=== PATIENT | female | born 1960 | race Caucasian/White ===

== ENCOUNTER → 2017-08-05 | Outpatient (CLI) | payer OTHER | END | disposition home or self-care (01) | LOC: C.LAB 10:00 | PROVIDERS: ATTEND Physician Assistant | DX: H93.12 Tinnitus, left ear (principal) ==

== ENCOUNTER → 2017-08-20 | Outpatient (CLI) | payer OTHER ==
[~2017-08-20] MED LIST: GADAVIST IV PRN
--- NOTE | 2017-08-20 09:44 | DIAGNOSTIC IMAGING REPORT ---
BRAIN COMBO FOR IAC CLINICAL HISTORY: 57 years-old Female presenting with H91.22 70 radiographic left hearing loss, tinnitus, 3 weeks duration. TECHNIQUE: Multisequence, multiplanar MR imaging of the brain was performed before and after the administration of intravenous contrast. IV contrast: 6 mL of Gadavist. COMPARISON: None. FINDINGS: Ventricles and sulci normal in size. Few scattered subcortical white matter FLAIR hyperintensities likely age-related. Brain parenchyma otherwise normal in appearance with preserved washing[place]-white differentiation. No mass effect or midline shift. No restricted diffusion to suggest acute ischemia. No hemorrhage. No extra-axial fluid collection. Dedicated imaging of the brainstem demonstrates normal cranial nerves. Specifically, the internal auditory canals are normal appearing. Normal signal intensity and appearance of the inner ears structures. T2 skull base flow voids preserved. No abnormal parenchymal enhancement. Bone marrow signal intensity within the calvarium within normal limits. IMPRESSION: 1. No acute intracranial pathology. No abnormal enhancement. Electronically signed by: Al Chen M.D. 08/20/2017 9:43 AM Dictated Date/Time: 08/20/2017 9:35 AM
== END | disposition home or self-care (01) ==
LOC: C.MRI 08:34
PROVIDERS: ATTEND Physician Assistant
DX: H91.22 Sudden idiopathic hearing loss, left ear (principal)

== ENCOUNTER → 2017-09-05 | Outpatient (CLI) | payer OTHER ==
[2017-09-05 10:11] LABS: HEMATOCRIT 43.5 % (37-47); MEAN CELL VOLUME 93.3 fL (80-100); MEAN CORPUSCULAR HEMOGLOBIN 32.2 pg (25-34); MEAN CORPUSCULAR HGB CONC 34.5 g/dl (32-36); MEAN PLATELET VOLUME 12.3 fL (7.4-10.4); PLATELET COUNT 183 K/uL (130-400); RED BLOOD COUNT 4.66 M/uL (4.2-5.4); WHITE BLOOD COUNT 4.03 K/uL (4.8-10.8)
[2017-09-05 11:13] LABS: COMPLETE YES; LYMPH ABS # 0.97 K/uL (1.2-3.4); LYMPHOCYTE % 24.1 %; NEUTROPHILS % 40.2 %; VARIANT LYM ABS # 1.33 K/uL
[2017-09-05 12:25] LABS: LYME DISEASE AB IGG NEG (NEG); LYME DISEASE AB IGM NEG (NEG)
== END | disposition home or self-care (01) ==
LOC: C.LAB 09:33
PROVIDERS: ATTEND Physician Assistant
DX: H91.22 Sudden idiopathic hearing loss, left ear (principal); H93.12 Tinnitus, left ear

== ENCOUNTER → 2017-11-05 | Outpatient (CLI) | payer OTHER ==
[~2017-11-05] MED LIST changes: -GADAVIST IV PRN; +KETO10TA PO; +MELO7.5T5 PO; +MULTTAB58 PO; +TRAM-453 PO
--- NOTE | 2017-11-05 13:11 | DIAGNOSTIC IMAGING REPORT ---
L LOWER EXT JOINT WITHOUT CLINICAL HISTORY: 57 years-old Female with LEFT KNEE PAIN. Acute left knee pain, most pronounced medially COMPARISON: Left knee radiographs 10/30/2017 TECHNIQUE: Multiplanar, multisequence MRI of the left knee was performed without intravenous contrast. FINDINGS: MENISCI: Horizontal undersurface tear of the medial meniscal body, posterior junction and posterior horn medial meniscus is nicely seen on images 2 through 6 of series 10. No definite displaced meniscal fragment or parameniscal cyst identified. The meniscus is mildly extruded into the adjacent meniscal gutter with mild adjacent edema. No definite extension of the tear into the posterior meniscal root. The lateral meniscus is sharp in contour and appears intact without tear. CRUCIATE LIGAMENTS: The anterior and posterior cruciate ligaments are normal in signal, morphology and course. COLLATERAL LIGAMENTS: The popliteus tendon, biceps femoris tendon, fibular collateral ligament and iliotibial band are intact. The superficial and deep components of the medial collateral ligament are intact. EXTENSOR MECHANISM: The quadriceps and patellar tendons are intact. The medial and lateral patellar retinacula are intact. KNEE JOINT: Trace joint effusion. Mild medial compartment joint space narrowing with low-grade chondromalacia. No significant joint space narrowing or chondral thinning of the lateral compartment. Minimal marginal spurring about the patella with intermediate grade chondral fissuring of the medial patellar facet. Low to immediate grade chondral fissuring involves the trochlear groove. No intra-articular loose body identified. BONE MARROW: The bone marrow signal is age appropriate. No fracture, marrow edema, or marrow replacing process. SOFT TISSUES: Trace Coates's cyst. Trace fluid is noted within the deep pretibial bursa. IMPRESSION: 1. Mild medial compartment and patellofemoral osteoarthritis. 2. Horizontal undersurface tear of the medial meniscal body, posterior junction and posterior horn with mild extrusion of the meniscus into the adjacent meniscal gutter. This is likely acute with associated mild parameniscal edema. No displaced fragment or parameniscal cyst. 3. Trace joint effusion. 4. No ligamentous tear or fracture identified. The above report was generated using voice recognition software. It may contain grammatical, syntax or spelling errors. Electronically signed by: Lucius Painter M.D. 11/05/2017 1:09 PM Dictated Date/Time: 11/05/2017 1:01 PM
== END | disposition home or self-care (01) ==
LOC: C.MRIBC 11:33
PROVIDERS: ATTEND Orthopaedic Surgery
DX: S83.242A Other tear of medial meniscus, current injury, left knee, initial encounter (principal); M17.12 Unilateral primary osteoarthritis, left knee; X58.XXXA Exposure to other specified factors, initial encounter

== ENCOUNTER → 2017-11-12 | Day surgery (SDC) | payer OTHER ==
[2017-11-05 15:36] LABS: BASO % 0.4 %; BASO ABS # 0.02 K/uL (0-0.2); EOS % 0.6 %; EOS ABS # 0.03 K/uL (0-0.5); HEMATOCRIT 41.7 % (37-47); HEMOGLOBIN 14.6 g/dL (12.0-16.0); IG# 0.01 K/uL (0.00-0.02); LYMPH % 31.9 %; LYMPH ABS # 1.61 K/uL (1.2-3.4); MEAN CELL VOLUME 93.5 fL (80-100); MEAN CORPUSCULAR HEMOGLOBIN 32.7 pg (25-34); MEAN PLATELET VOLUME 13.4 fL (7.4-10.4); MONO % 8.7 %; MONO ABS # 0.44 K/uL (0.11-0.59); NEUT % 58.2 %; NEUT ABS # 2.94 K/uL (1.4-6.5); PLATELET COUNT 170 K/uL (130-400); RED CELL DISTRIBUTION WIDTH CV 12.3 % (11.5-14.5); RED CELL DISTRIBUTION WIDTH SD 41.5 fL (36.4-46.3); WHITE BLOOD COUNT 5.05 K/uL (4.8-10.8)
[2017-11-05 16:01] LABS: POTASSIUM 3.8 mmol/L (3.5-5.1)
[2017-11-10 14:00] VITALS: Ht 165.1 cm; Wt 61.4 kg
[~2017-11-12] VITALS: Ht 165.1 cm; Wt 61.4 kg
[~2017-11-12] MED LIST changes: +ATROPINE SULFATE 0.1 MG/ML 5ML SYR IV PRN; +CEFAZOLIN 1000MG IV PUSH 7.5 ML IV SCH; +CEPH500C PO; +DEXAMETHASONE SOD INJ 4 MG/ML VIAL ONE; +EpHEDrine SULFATE INJ 50 MG/ML AMP IV PRN; +EpINEphrine INJ 1MG/ML AMP 1 MG/ML AMP ONE; +FENTANYL CITRATE INJ 50 MCG/1 ML 2 ML VIAL IV PRN; +FENTANYL CITRATE INJ 50 MCG/1 ML 2 ML VIAL ONE; +FLUMAZENIL 0.1 MG/1 ML 10 ML VIAL IV PRN; +HYDROmorphone INJ 2 MG/ML SYR/VIAL IV PRN; +KETOROLAC TROMETHAMINE 30 MG/ML VIAL ONE; +LABETALOL HCL IV 5 MG/ML 20ML IV PRN; +LACTATED RINGER'S 1000ML 1,000 ML IV SCH; +LIDOCAINE HCL 2% 2 ML VIAL (20MG/ML) ONE; +MEPERIDINE HCL 25 MG/ML CARP IV PRN; +MIDAZOLAM HCL 1 MG/ML 2ML VIAL ONE; +NALOXONE HCL 0.4 MG/1 ML VIAL/CARP IV PRN; +ONDANSETRON INJ 2 MG/ML 2 ML VIAL IV PRN; +ONDANSETRON INJ 2 MG/ML 2 ML VIAL ONE; +OXYC1TAB3 PO; +PATIENT'S ALLERGY INFO NEEDS ENTERED SCH; +PATIENT'S HEIGHT AND/OR WEIGHT NEEDED SCH; +PHENYLEPHRINE 100MCG/ML 5ML SYR IV PRN; +PROPOFOL IV EMULSION 10 MG/ML 20 ML VIAL IV ONE; +ROPIVACAINE 0.5% 5 MG/ML 30 ML VIAL ONE; +SODIUM CHLORIDE 0.9% 1000ML 1,000 ML IV SCH; +SULF800T23 PO; +TRAMADOL HCL 50 MG TAB PO PRN
--- NOTE | 2017-11-12 10:41 | History & Physical Bridge - SC ---
H&P Re-Evaluation Bridge Note: I have examined the patient, reviewed the History & Physical and in the interval since the performance of the History & Physical I have noted the following changes of clinical significance: No changes noted. I will be doing the surgery in Dr. Phillips's absence. Patient aware and approves. Discussed in detail. BRITT Mortensen MD
--- NOTE | 2017-11-12 11:19 | [facility] Post Operative Brief Note ---
Immediate Operative Summary Operative Date Nov 12, 2017. Pre-Operative Diagnosis Left Knee Medial Meniscus Tear + DJD Post-Operative Diagnosis Same Procedure(s) Performed Left Knee Arthroscopy, Partial Medial Meniscectomy Surgeon Dr. Mortensen Hotel Attendant Surgeon(s) Yolette Ewing PA-C Estimated Blood Loss Minimal Findings Consistent with Post-Op Diagnosis Specimens None Drains None Anesthesia Type General Complication(s) none Disposition Accompanied Pt To Recovery: no Disposition: Recovery Room / PACU
--- NOTE | 2017-11-12 11:23 | Discharge Instructions-SurgCtr ---
Discharge Instructions Date of Service Nov 12, 2017. Visit Reason for Visit: Left Knee Medial Meniscus Tear Discharge Discharge Diagnosis / Problem: left knee medial meniscus tear, djd Discharge Goals Goal(s): Decrease discomfort, Improve function, Therapeutic intervention Medications Stopped Medications Name(s): Mobic stopped 2 days ago Restart Stopped Medication(s): restart mobic when finished with toradol Activity Recommendations Activity Limitations: per Instructions/Follow-up section Weightbearing Status: Left weightbearing (as tolerated) Anesthesia . Post Anesthesia Instructions: If you have had General Anesthesia or IV Sedation: * Do not drive today. * Resume driving when surgeon permits. * Do not make important decisions or sign legal documents today. * Call surgeon for: 1. Temperature elevations greater than 101 degrees F. 2. Uncontrollable pain. 3. Excessive bleeding. 4. Persistent nausea and vomiting. 5. Medication intolerance (nausea, vomiting or rash). * For nausea and vomiting use only clear liquids such as: tea, soda, bouillon until nausea subsides, then gradually increase diet as tolerated. * If you have any concerns or questions, call your surgeon's office. If physician is unavailable and it is an emergency, call 911 or go to the nearest emergency room. . Instructions / Follow-Up Instructions / Follow-Up MEDICATIONS: * Resume previous medications unless instructed otherwise by your surgeon. * Always take pain medication on a full stomach or with food to avoid upset stomach. * Do not drink alcohol or drive while taking narcotics. * Tylenol may be taken if narcotic not needed. SPECIAL CARE INSTRUCTIONS: __ None _x_ Keep extremity elevated and iced x 48 hours; apply ice 20-30 minutes 8-10 times/day. May remove at night. __ Crutches __ May discard when able __ Brace/Post-op shoe __ 24 hrs/day __ Remove at night _x_ Dressing __ Maintain until seen in office, may shower with plastic over site _x_ Remove dressings in 24-48 hours and then may shower _x_ Cover incisions with band-aids after showering __ Do not remove steri-strips Call physician if chills or temperature rises above 102 degrees or pain unrelieved by prescribed pain medications. Office [phone] follow up in 2 weeks Diet Recommendations Home Diet: resume previous diet Procedures Procedures Performed: Left Knee Arthroscopy, Partial Medial Meniscectomy Pending Studies Studies pending at discharge: no Medical Emergencies . Who to Call and When: Medical Emergencies: If at any time you feel your situation is an emergency, please call 911 immediately. . Non-Emergent Contact Non-Emergency issues call your: Surgeon . . "Provider Documentation" section prepared by Gatito Ewing. .
[2017-11-12 12:07] VITALS: TEMP 36.6
--- NOTE | 2017-11-12 12:24 | Anesthesia Progress Nt - [facility] ---
Anesthesia Post Op Note Date & Time Nov 12, 2017 at 12:23 Vital Signs Pain Intensity: 0 Vital Signs Past 12 Hours Date Time Temp Pulse Resp B/P (MAP) Pulse Ox O2 Delivery O2 Flow Rate FiO2 11/12/17 12:07 36.6 72 16 115/72 (86) 97 Room Air 11/12/17 11:59 74 7 11/12/17 11:59 74 7 97 11/12/17 11:58 76 10 98 11/12/17 11:58 75 10 11/12/17 11:57 83 14 98 11/12/17 11:57 81 14 11/12/17 11:56 114/69 11/12/17 11:55 36.4 74 18 114/69 98 Room Air 11/12/17 11:52 76 11 11/12/17 11:52 75 11 98 11/12/17 11:51 75 5 11/12/17 11:51 75 5 114/67 98 11/12/17 11:46 79 24 100 11/12/17 11:46 82 24 11/12/17 11:45 118/67 11/12/17 11:42 84 14 11/12/17 11:42 84 14 100 11/12/17 11:41 76 10 117/69 100 11/12/17 11:41 77 10 11/12/17 11:36 76 28 123/68 100 11/12/17 11:36 76 28 11/12/17 11:35 78 27 100 11/12/17 11:35 79 27 11/12/17 11:30 78 15 122/74 100 11/12/17 11:30 78 15 11/12/17 11:26 104/61 11/12/17 11:25 64 14 100 11/12/17 11:25 64 14 11/12/17 11:21 106/60 11/12/17 11:20 36.9 62 12 106/60 98 Diffusion Mask 10 11/12/17 09:41 36.4 62 16 110/73 (85) 98 Room Air Notes Mental Status: alert / awake / arousable, participated in evaluation Pt Amnestic to Procedure: Yes Nausea / Vomiting: adequately controlled Pain: adequately controlled Airway Patency, RR, SpO2: stable & adequate BP & HR: stable & adequate Hydration State: stable & adequate Anesthetic Complications: no major complications apparent
[2017-11-12 12:29] VITALS: BP 109/67; PULSE 70; O2SAT 99
--- NOTE | 2017-11-12 21:18 | OPERATIVE REPORT ---
DATE OF OPERATION: 11/12/2017 SURGEON: Castillo Mortensen MD AGRICULTURAL EQUIPMENT TEST ENGINEER: YAJAIRA Ashraf PREOPERATIVE DIAGNOSES: 1. Left knee degenerative medial meniscus tear. 2. Left knee degenerative joint disease. POSTOPERATIVE DIAGNOSES: 1. Left knee degenerative medial meniscus tear. 2. Left knee degenerative joint disease with some grade 3 changes of medial femoral condyle and grade 2 changes of patellofemoral joint. PROCEDURE PERFORMED: 1. Left knee exam under anesthesia. 2. Left knee diagnostic arthroscopy. 3. Left knee arthroscopic partial medial meniscectomy. COMPLICATIONS: None. ESTIMATED BLOOD LOSS: Minimal. TOURNIQUET TIME: 70 minutes at 300 mmHg. ANESTHESIA: General. SPECIMENS: None. OPERATIVE INDICATIONS: The patient is a 57-year-old fairly active female who has had a several year history of on and off knee pain and discomfort. It has gotten progressively worse recently where the pain persisted, particularly in the medial side of her knee. She is having difficulty getting relief. X-rays revealed mild DJD. She does have an MRI which shows medial meniscus tear. The patient elected to proceed with operative treatment. It was felt pretty certain that she had significant chondrosis of the medial femoral condyle as well. OPERATIVE FINDINGS: Examination under anesthesia of the left knee revealed minimal knee effusion. Range of motion 0-135. She had no instability. Dylan is negative for mechanical symptoms. ARTHROSCOPIC FINDINGS: Arthroscopic findings revealed no significant effusion. She did have some grade 2 changes in the undersurface of patella. The trochlea was pretty well preserved. In the intercondylar notch, the ACL and PCL were intact. In the medial compartment, there was a very complex degenerative tear of the posterior horn of the medial meniscus. She did have some grade 2 and 3 changes of the medial femoral condyle. In the lateral compartment, there were some age-related changes to the cartilage and meniscus but no tears. OPERATIVE PROCEDURE: The patient was taken to the operating room, identified and placed on the operating table in supine position. All contact areas were appropriately padded. IV antibiotics were provided by anesthesia team. A general anesthetic was implemented. A left thigh tourniquet was then placed and left knee was then examined under anesthesia with the findings as described above. The left leg was then prepped and draped in the usual sterile fashion. The left leg was elevated and exsanguinated with Esmarch and tourniquet was placed at 300 mmHg. Routine left knee arthroscopy was then performed through typical anteromedial and anterolateral portals. Superolateral portals were established for outflow. I did remove some of the fat pad in order to adequately see him passing instruments. Attention drawn to the medial meniscus. With the use of motorized and hand controlled instruments, a partial medial meniscectomy was then performed. I resected this meniscus back to stable tissue. Once this was complete, I did lightly debride the medial femoral condyle and the patella of extraneous loose cartilage. Once this was complete, the arthroscopic instruments were then placed throughout the knee joint. All extraneous debris was removed. The arthroscopic instruments were then removed from the joint and the portals also closed with 3-0 Prolene suture in a simple fashion. The knee was injected with 30 mL of 0.5% ropivacaine with epinephrine and 30 mg of Toradol. A sterile dressing with Xeroform, 4 x 4, sterile cast padding and Chris bandage were applied. The tourniquet was then let down for a tourniquet time 17 minutes. The patient was then brought out of general anesthesia and transferred to the recovery room in stable condition. The patient tolerated the procedure without complication. All needle and sponge counts were correct at the end of the operation. I attest to the content of the Intraoperative Record and any orders documented therein. Any exception s are noted below.
== END | disposition home or self-care (01) ==
LOC: X.SURG 09:18
PROVIDERS: ATTEND Orthopaedic Surgery Sports Medicine
DX: S83.242A Other tear of medial meniscus, current injury, left knee, initial encounter (principal); X58.XXXA Exposure to other specified factors, initial encounter; M17.12 Unilateral primary osteoarthritis, left knee

== ENCOUNTER 2017-11-14 22:13 | Emergency (ER) | payer OTHER ==
[~2017-11-14] VITALS: Ht 165.1 cm; Wt 61.0 kg
[~2017-11-14 22:13] MED LIST changes: -ATROPINE SULFATE 0.1 MG/ML 5ML SYR IV PRN; -CEFAZOLIN 1000MG IV PUSH 7.5 ML IV SCH; -CEPH500C PO; -DEXAMETHASONE SOD INJ 4 MG/ML VIAL ONE; -EpHEDrine SULFATE INJ 50 MG/ML AMP IV PRN; -EpINEphrine INJ 1MG/ML AMP 1 MG/ML AMP ONE; -FENTANYL CITRATE INJ 50 MCG/1 ML 2 ML VIAL IV PRN; -FENTANYL CITRATE INJ 50 MCG/1 ML 2 ML VIAL ONE; -FLUMAZENIL 0.1 MG/1 ML 10 ML VIAL IV PRN; -HYDROmorphone INJ 2 MG/ML SYR/VIAL IV PRN; -KETOROLAC TROMETHAMINE 30 MG/ML VIAL ONE; -LABETALOL HCL IV 5 MG/ML 20ML IV PRN; -LACTATED RINGER'S 1000ML 1,000 ML IV SCH; -LIDOCAINE HCL 2% 2 ML VIAL (20MG/ML) ONE; -MEPERIDINE HCL 25 MG/ML CARP IV PRN; -MIDAZOLAM HCL 1 MG/ML 2ML VIAL ONE; -NALOXONE HCL 0.4 MG/1 ML VIAL/CARP IV PRN; -ONDANSETRON INJ 2 MG/ML 2 ML VIAL IV PRN; -ONDANSETRON INJ 2 MG/ML 2 ML VIAL ONE; -OXYC1TAB3 PO; -PATIENT'S ALLERGY INFO NEEDS ENTERED SCH; -PATIENT'S HEIGHT AND/OR WEIGHT NEEDED SCH; -PHENYLEPHRINE 100MCG/ML 5ML SYR IV PRN; -PROPOFOL IV EMULSION 10 MG/ML 20 ML VIAL IV ONE; -ROPIVACAINE 0.5% 5 MG/ML 30 ML VIAL ONE; -SODIUM CHLORIDE 0.9% 1000ML 1,000 ML IV SCH; -SULF800T23 PO; -TRAMADOL HCL 50 MG TAB PO PRN
[2017-11-14 22:29] VITALS: TEMP 36.4; Ht 165.1 cm; Wt 61.0 kg
[2017-11-14] MEDS ORDERED: SODIUM CHLORIDE 0.9% 500ML 500 ML IV STA (22:49)
[2017-11-14] MEDS ORDERED: HYDROmorphone INJ 1 MG/ML SYR IV STA (22:49)
[2017-11-14] MEDS ORDERED: ONDANSETRON INJ 2 MG/ML 2 ML VIAL IV STA (22:49)
[2017-11-14] MEDS ORDERED: CEFTRIAXONE SOD INJ 1 GM in DEXTROSE 5% ADD-VANTAGE 50ML 50 ML IV STA (23:07)
[2017-11-14] MEDS ORDERED: CEFTRIAXONE SOD INJ 1 GM ADDVIAL ONE (23:12)
[2017-11-14 23:14] LABS: BASO % 0.2 %; BASO ABS # 0.02 K/uL (0-0.2); EOS % 0.4 %; EOS ABS # 0.04 K/uL (0-0.5); HEMATOCRIT 45.3 % (37-47); HEMOGLOBIN 15.4 g/dL (12.0-16.0); IG# 0.02 K/uL (0.00-0.02); LYMPH % 25.2 %; LYMPH ABS # 2.41 K/uL (1.2-3.4); MEAN CELL VOLUME 92.4 fL (80-100); MEAN CORPUSCULAR HEMOGLOBIN 31.4 pg (25-34); MEAN PLATELET VOLUME 12.6 fL (7.4-10.4); MONO ABS # 1.15 K/uL (0.11-0.59); NEUT ABS # 5.92 K/uL (1.4-6.5); PLATELET COUNT 193 K/uL (130-400); RED CELL DISTRIBUTION WIDTH CV 12.3 % (11.5-14.5); RED CELL DISTRIBUTION WIDTH SD 41.2 fL (36.4-46.3); WHITE BLOOD COUNT 9.56 K/uL (4.8-10.8)
[2017-11-14 23:40] LABS: BLOOD UREA NITROGEN 18 mg/dl (7-18); CALCIUM 9.4 mg/dl (8.5-10.1); CARBON DIOXIDE 27 mmol/L (21-32); CREATININE 0.93 mg/dl (0.60-1.20); GLUCOSE 85 mg/dl (70-99); POTASSIUM 3.6 mmol/L (3.5-5.1); SODIUM 136 mmol/L (136-145)
[2017-11-14] MEDS ORDERED: OXYC1TAB3 PO (23:46)
[2017-11-14] MEDS ORDERED: CEPH500C PO (23:46)
[2017-11-14] MEDS ORDERED: SULF800T23 PO (23:46)
--- NOTE | 2017-11-14 23:49 | EMERGENCY ROOM VISIT NOTE ---
History First contact with patient: 22:40 Chief Complaint: KNEEPAIN Stated Complaint: PAIN/BURNING/REDNESS IN LEFT KNEE- 2 DAYS POST OP History of Present Illness The patient is a 57 year old female who presents to the Emergency Room with complaints of severe pain in her left knee that started today. The patient had a meniscus repair arthroscopically 2 days ago. She was doing fairly well yesterday. She denies any significant activity. She did elevate the leg yesterday and applied ice. She was prescribed Toradol for pain, which was working yesterday. Today, the pain became severe this afternoon. She tried Tylenol and ibuprofen with minimal relief. She also notes swelling and redness to the area. She denies any fever or chills. No chest pain or difficulty breathing. Review of Systems 10 system review performed and negative unless noted in HPI or below Past Medical/Surgical History Otherwise healthy Social History Smoking Status: Never Smoker Housing Status: lives with significant other Current/Historical Medications Scheduled Cephalexin Monohydrate (Keflex), 500 MG PO QID Ketorolac Tromethamine (Toradol), 10 MG PO Q6 Multiple Vitamin (Multivitamin), 1 TAB PO DAILY Sulfa/Trimethoprim (Bactrim Ds 800MG/160MG), 1 TAB PO BID Scheduled PRN Oxycodone Ir (Roxicodone Ir), 1-2 TAB PO Q4H PRN for Pain Tramadol Hcl (Ultram), 50-100 MG PO Q6 PRN for Pain Physical Exam Vital Signs Date Time Temp Pulse Resp B/P (MAP) Pulse Ox O2 Delivery O2 Flow Rate FiO2 11/15/17 00:39 63 16 100/60 100 Room Air 11/14/17 22:29 36.4 71 16 123/72 97 Room Air Physical Exam VITALS: Vitals are noted on the nurse's note and reviewed by myself. Vital signs stable. GENERAL: 57-year-old female, in obvious discomfort noted, HEAD: Normocephalic atraumatic. HEART: Regular rate and rhythm without murmurs gallops or rubs. LUNGS: Clear to auscultation bilaterally without wheezes, rales or rhonchi. No accessory muscle use. ABDOMEN: Positive bowel sounds x 4.Soft, nontender, without organomegaly. No guarding or rebound tenderness. MUSCULOSKELETAL: LLE: 3 small incisions noted to the left knee with sutures intact. No active drainage. There is an approximately 10 x 6 cm area of erythema and warmth diffusely over the patella. Diffuse, significant tenderness to palpation over the knee. Range of motion is severely limited secondary to pain. No erythema, swelling or tenderness over the calf. Distal pulses intact. NEURO: Patient was alert and oriented to person place and time. Normal sensation to touch. No focal neurological deficits. Medical Decision & Procedures ER Provider Diagnostic Interpretation: Ultrasound of the left lower extremity did not show any signs of a DVT X-rays were reviewed by myself and my supervising physician. No acute abnormalities were noted Laboratory Results 11/14/17 23:00 Red Blood Count 4.90, Mean Corpuscular Volume 92.4, Mean Corpuscular Hemoglobin 31.4, Mean Corpuscular Hemoglobin Concent 34.0, Mean Platelet Volume 12.6, Neutrophils (%) (Auto) 62.0, Lymphocytes (%) (Auto) 25.2, Monocytes (%) (Auto) 12.0, Eosinophils (%) (Auto) 0.4, Basophils (%) (Auto) 0.2, Neutrophils # (Auto ) 5.92, Lymphocytes # (Auto) 2.41, Monocytes # (Auto) 1.15, Eosinophils # (Auto ) 0.04, Basophils # (Auto) 0.02 11/14/17 23:00 Test 11/14/17 23:00 11/14/17 23:07 White Blood Count 9.56 K/uL (4.8-10.8) Red Blood Count 4.90 M/uL (4.2-5.4) Hemoglobin 15.4 g/dL (12.0-16.0) Hematocrit 45.3 % (37-47) Mean Corpuscular Volume 92.4 fL (80-100) Mean Corpuscular Hemoglobin 31.4 pg (25-34) Mean Corpuscular Hemoglobin Concent 34.0 g/dl (32-36) Platelet Count 193 K/uL (130-400) Mean Platelet Volume 12.6 fL (7.4-10.4) Neutrophils (%) (Auto) 62.0 % Lymphocytes (%) (Auto) 25.2 % Monocytes (%) (Auto) 12.0 % Eosinophils (%) (Auto) 0.4 % Basophils (%) (Auto) 0.2 % Neutrophils # (Auto) 5.92 K/uL (1.4-6.5) Lymphocytes # (Auto) 2.41 K/uL (1.2-3.4) Monocytes # (Auto) 1.15 K/uL (0.11-0.59) Eosinophils # (Auto) 0.04 K/uL (0-0.5) Basophils # (Auto) 0.02 K/uL (0-0.2) RDW Standard Deviation 41.2 fL (36.4-46.3) RDW Coefficient of Variation 12.3 % (11.5-14.5) Immature Granulocyte % (Auto) 0.2 % Immature Granulocyte # (Auto) 0.02 K/uL (0.00-0.02) Erythrocyte Sedimentation Rate 2 mm/hr (0-21) Anion Gap 6.0 mmol/L (3-11) Est Creatinine Clear Calc Drug Dose 60.1 ml/min Estimated GFR () 79.1 Estimated GFR (Non- 68.2 BUN/Creatinine Ratio 19.0 (10-20) Calcium Level 9.4 mg/dl (8.5-10.1) C-Reactive Protein < 0.29 mg/dl (0-0.29) Procalcitonin < 0.05 ng/ml (0-0.5) Bedside Lactic Acid Venous 0.97 mmol/L (0.90-1.70) Medications Administered Medications (Trade) Dose Ordered Sig/Panfilo Route Start Time Stop Time Status Last Admin Dose Admin Hydromorphone HCl (Dilaudid Inj) 1 mg ONE STAT IV 11/14/17 22:49 11/14/17 22:51 DC 11/14/17 23:15 1 MG Ondansetron HCl (Zofran Inj) 4 mg NOW STAT IV 11/14/17 22:49 11/14/17 22:51 DC 11/14/17 23:15 4 MG Sodium Chloride 500 ml @ 999 mls/hr Q31M STAT IV 11/14/17 22:49 11/14/17 23:19 DC 11/14/17 23:15 999 MLS/HR Ceftriaxone Sodium 1 gm/ Dextrose 50 ml @ 100 mls/hr ONE STAT IV 11/14/17 23:07 11/14/17 23:36 DC 11/14/17 23:15 100 MLS/HR ED Course Patient was seen and examined Vital signs including blood pressure were reviewed medications list was verified with patient Labs were obtained, and a saline lock was established The patient was medicated with Dilaudid and Zofran. She was hydrated with 500 mL of normal saline. She was also given 1 dose of Rocephin. The case was discussed with Dr. Gonzalez from orthopedics Imaging was performed and reviewed Upon reevaluation, the patient's pain was much improved. We discussed the results of her workup. She and her voiced understanding. The patient was given a home pack of oxycodone I reviewed discharge instructions the patient. They voiced understanding and had no further questions. Medical Decision Differential diagnosis: Postoperative infection, cellulitis, reaction to sutures , postoperative pain, hemarthrosis This patient is a 57-year-old female presents emergency department with severe pain in the left knee. On exam, she did have significant erythema, warmth and tenderness over the knee. Range of motion was severely limited. The presentation was suspicious for possible infection. The case was discussed with on-call orthopedics. Her workup reveals no leukocytosis. Her inflammatory markers are within normal limits. An ultrasound to not show any signs of a DVT. I am concerned that this is still possibly an infection. The patient will be covered with Keflex and Bactrim until she can get it with her orthopedic doctor. She was also given a short course of narcotics. She is comfortable with this plan. She agrees to return to the emergency department with any new or worsening symptoms. This chart was completed in part utilizing [employer] Speech Voice Recognition software. Attempts were made to minimize the grammatical errors, random word insertions, pronoun errors and incomplete sentences. Any formal questions or concerns about the content, text or information contained within the body of this dictation should be directly addressed to the provider for clarification. Medication Reconcilliation Current Medication List: was personally reviewed by me Blood Pressure Screening Patient's blood pressure: Normal blood pressure Consults Consulting Physician: Dr. Gonzalez Impression Primary Impression: Knee pain Departure Information Dispostion Home / Self-Care Condition FAIR Prescriptions Sulfa/Trimethoprim (Bactrim Ds 800MG/160MG) Tab 1 TAB PO BID for 7 Days, #14 TAB Prov: Jana Alfonso, PA-C 11/14/17 Cephalexin Monohydrate (Keflex) 500 Mg Cap 500 MG PO QID for 7 Days, #28 CAP Prov: Jana Alfonso PA-C 11/14/17 Oxycodone Ir (Roxicodone Ir) 5 Mg Tab 1-2 TAB PO Q4H Y for Pain, #20 TAB For Initial Treatment Prov: Jana Alfonso PA-C 11/14/17 Referrals Cheri Banerjee M.D. (PCP) Castillo Mortensen M.D. Patient Instructions My [facility] Additional Instructions You were evaluated in the emergency department for severe pain in the left knee. There is a possibility of infection. Please keep the Chris wrap in place for compression. Please apply ice for 20 minute intervals over the next 48 hours. Please elevate the leg above your heart as much as possible. Minimal weight bearing Please take the entire course of antibiotics Ibuprofen 800 mg and/or Tylenol 1000 mg every 8 hours. You may also alternate these medications for more effective pain relief: Ibuprofen --4 HRS--> Tylenol --4 HRS--> ibuprofen --4 HRS--> Tylenol .... Oxycodone Immediate Release (OxyIR) 5mg: Take 1-2 pills every four hours for pain. Avoid alcohol, operating machinery or dangerous equipment, working on ladders or roofs, DRIVING, or situations where being under the influence may be dangerous. It is recommended to use an dspi-erg-wgetbwn stool softener such as Colace, 100mg twice daily while taking this medication to avoid constipation. Please call the orthopedic doctors office worsening Friday for a follow- up appointment. Please do not hesitate to return to the emergency department with any new, worsening or concerning symptoms; especially, fever, worsening redness, pain or drainage from the area It was a pleasure participating in your care this evening
[2017-11-15] MEDS ORDERED: OXYCODONE IR HOME PACK PO ONE
[2017-11-15] MEDS ORDERED: SULFAMETHOXAZOLE/TRIMETHOPRIM DS 800/160MG TAB PO ONE (00:15)
[2017-11-15 00:39] VITALS: BP 100/60; PULSE 63; O2SAT 100
--- NOTE | 2017-11-15 06:45 | DIAGNOSTIC IMAGING REPORT ---
L KNEE 3 VIEWS CLINICAL HISTORY: L knee pain swelling post op ? infection COMPARISON: MRI of the left knee November 05, 2017 and left knee radiographs October 30, 2017. FINDINGS: Alignment of the left knee is anatomic. No fracture is identified. Joint spaces are preserved. There is a moderate-sized left knee joint effusion. There is suspected soft tissue gas lateral to the distal metadiaphysis of the left femur. No unexpected radiopaque foreign bodies identified. There is no evidence for osteomyelitis. Soft tissue swelling is noted. IMPRESSION: 1. Soft tissue swelling and a moderate-sized left knee joint effusion. 2. Soft tissue gas, as described above. This is likely postsurgical. Electronically signed by: Bud Guerra M.D. 11/15/2017 6:44 AM Dictated Date/Time: 11/15/2017 6:42 AM
--- NOTE | 2017-11-15 07:50 | DIAGNOSTIC IMAGING REPORT ---
LEFT LOWER EXTREMITY VENOUS DOPPLER CLINICAL HISTORY: Left lower extremity pain. Recent surgery. COMPARISON STUDY: No previous studies for comparison. TECHNIQUE: Sonography of the deep venous system of the left lower extremity was performed. Compression and augmentation were evaluated. FINDINGS: The left common femoral, superficial femoral and popliteal veins were compressible. Augmentation was normal. Flow was shown within the deep calf vessels. IMPRESSION: No evidence of deep venous thrombus within the left lower extremity. Electronically signed by: Bud Guerra M.D. 11/15/2017 7:49 AM Dictated Date/Time: 11/15/2017 7:48 AM
== END 2017-11-15 01:15 | disposition home or self-care (01) ==
LOC: C.EDB 22:16 → C.EDC 11-15 01:15
DX: M25.562 Pain in left knee (principal); Z98.890 Other specified postprocedural states